=== PATIENT | female | born 1945 | race Caucasian/White ===

== ENCOUNTER 2017-09-19 12:28 | Inpatient (IN) | payer OTHER ==
[~2017-09-19] VITALS: Ht 167.6 cm; Wt 71.2 kg
--- NOTE | 2017-09-19 12:28 | NUR ---
Dr. Oglesby evaluating patient at bedside.
--- NOTE | 2017-09-19 12:28 | NUR ---
Patient was BIBA and taken to bed 10 via gurney per EMS.
[2017-09-19 12:31] VITALS: BP 104/46
[2017-09-19] MEDS ORDERED: NACL 0.9% 1,000 ML IV ONE ×2 (12:35→14:45)
--- NOTE | 2017-09-19 12:35 | NUR ---
PT BIBA FROM SNF FOR EVALUATION OF INCREASED GENERALIZED WEAKNESS AND LETHARGY AND DIMINISHED APPETITE.CLAY MIXER REPORTS EPISODE OF BLACK TARRY STOOL.REDNESS NOTED ON SACRAL AREAHX OF DEMENTIA, HTN, HYPERLIPIDEMIA,DM.PT IS NON VERBAL BUT ABLE TO FOLLOW COMMAND;SKIN IS PINK/WARM/DRY; LUNGS CLEAR BL; HR EVEN AND REGULAR; PAIN OF 0/10 UTILIZING FLACC AT THIS TIME;PATIENT POSITIONED FOR COMFORT; HOB ELEVATED; BEDRAILS UP X2; BED DOWN. ALL MONITORS IN PLACED;ER MD MADE AWARE OF PT STATUS.
[2017-09-19] MEDS ORDERED: VITA1TAB SL (12:56)
[2017-09-19] MEDS ORDERED: QUET50TA PO (12:56)
[2017-09-19] MEDS ORDERED: GLU500 PO (12:56)
[2017-09-19] MEDS ORDERED: ASPI81CT95 PO (12:56)
[2017-09-19] MEDS ORDERED: [UNRECOGNIZED DRUG - CODE] PO (12:56)
[2017-09-19] MEDS ORDERED: CALC-52 PO (12:56)
[2017-09-19] MEDS ORDERED: MIRT15TA PO (12:56)
[2017-09-19] MEDS ORDERED: DONE10TA91 PO (12:56)
[2017-09-19] MEDS ORDERED: TROS20TA PO (12:56)
[2017-09-19] MEDS ORDERED: LISI-420 PO (12:56)
--- NOTE | 2017-09-19 13:20 | NUR ---
Patient taken to CT via gissel bolivar.
--- NOTE | 2017-09-19 13:23 | NUR ---
Tawny moura in ED - 09/19/17 at [address] SCAN ACCOMPANIED BY TECH.
[2017-09-19 13:26] LABS: HEMATOCRIT 35.1 % (36-48); HEMOGLOBIN 11.6 g/dL (12.0-16.0); MEAN CORPUSCULAR HEMOGLOBIN 30 pg (27-31); MEAN CORPUSCULAR HGB CONC 33 g/dL (33-37); MEAN CORPUSCULAR VOLUME 91 fL (80-94); PLATELET COUNT (AUTO) 125 K/uL (140-450); RED BLOOD CELL COUNT(AUTO) 3.85 MIL/uL (4.20-5.40); RED CELL DISTRIBUTION WIDTH 14.1 % (11.6-13.7); WHITE BLOOD COUNT (AUTO) 8.8 K/uL (4.8-10.8)
[2017-09-19] MEDS ORDERED: NACL 0.9% 500 ML IV ONE ×3 (13:40→21:20)
[2017-09-19 13:46] LABS: LYMPHOCYTES % (MANUAL) 5 % (20-46); MONOCYTES % (MANUAL) 5 % (5-12)
--- NOTE | 2017-09-19 14:19 | NUR ---
Dr. Oglesby reevaluating patient at bedside.
[2017-09-19] MEDS ORDERED: PIPERACILLIN/TAZOBACTAM 3.375 GM in DEXTROSE 5% 50 ML IV ONE (14:30)
[2017-09-19 14:46] LABS: ANION GAP 19.4 (8-16); ASPARTATE AMINOTRANSFERASE 22 U/L (15-37); CARBON DIOXIDE 20.6 mmol/L (21-32); CHLORIDE 107 mmol/L (98-107); GLUCOSE 238 mg/dL (74-106); SODIUM SERUM 143 mmol/L (136-145); TOTAL BILIRUBIN 0.7 mg/dL (0.0-1.0)
[2017-09-19 14:49] LABS: APPEARANCE,URINE CLOUDY (CLEAR); BILIRUBIN,URINE 1+ (NEGATIVE); BLOOD, URINE 3+ (NEGATIVE); COLOR,URINE YELLOW (YELLOW); LEUKOCYTE ESTERASE ,URINE 3+ (NEGATIVE); NITRITE, URINE NEGATIVE (NEGATIVE); UGLUCOSE NEGATIVE (NEGATIVE)
[2017-09-19 14:49] LABS: CREATININE 4.3 mg/dL (0.6-1.3); UREA NITROGEN, BLOOD 132 mg/dL (7-18)
[2017-09-19] MEDS ORDERED: PIPERACILLIN/TAZOBACTAM 3.375 GM VIAL IV ONE (15:06)
[2017-09-19 15:10] LABS: RBC,URINE 11-20 (MOD) /HPF (0-5); WBC,URINE TOO MANY TO COUNT /HPF (0-5)
--- NOTE | 2017-09-19 15:35 | NUR ---
PER EMS PT IS FULL CODE.
--- NOTE | 2017-09-19 15:45 | NUR ---
RECEIVED PT FROM ER VIA SpeedDate[employer]NEY. PT ALERT AND ABLE TO VERBALIZE. TACHYCARDIAC WHEN RECEIVE. NO RESPIRATORY DISTRESS NOTED. PT ON NC AT 2 LTR/MIN. O2 SAT 94 %. SPONTANEOUS EYES OPENING, REACTIVE TO LIGHT. SKIN DRY AND WARM TO TOUCH. LUNGS SOUND CLEAR ON AUSCULTATION. PERIPHERAL LINE ON RIGHT HAND 22 G AND LEFT HAND 20 G. ON 0.9% NS BOLUS. ABDOMEN SOFT, ROUND AND NON-TENDER. HYPOACTIVE BOWEL SOUND. REYNOSO'S CATH IN PLACE. PITTING EDEMA PRESENT ON BLE. SAFETY MEASURES APPLIED. BED IN LOW POSITION, LOCKED. CALL LIGHT WITHIN REACH. WILL CONTINUE TO MONITOR.
--- NOTE | 2017-09-19 15:49 | NUR ---
Patient will be admitted to [facility]. Admited to ICU. Will go to room 5. Belongings list completed. Report to TONEY PERALTA.
[2017-09-19 16:00] VITALS: BP 110/71
--- NOTE | 2017-09-19 16:00 | NUR ---
MRSA NARES AND STOOL FOR OCCULT BLOOD SENT TO THE LAB.
[2017-09-19] MEDS ORDERED: ACETAMINOPHEN 325 MG TAB PO PRN (17:00)
[2017-09-19] MEDS ORDERED: DILTIAZEM 25 MG/5 ML VIAL IVP ONE (17:00)
[2017-09-19] MEDS ORDERED: HYDROcodone/APAP 7.5/325 MG 1 TAB PO PRN (17:00)
[2017-09-19] MEDS ORDERED: ONDANSETRON 4 MG/2 ML VIAL IVP PRN (17:00)
[2017-09-19] MEDS ORDERED: NACL 0.9% 1,000 ML IV SCH (17:00)
[2017-09-19] MEDS ORDERED: DIPHENOXYLATE /ATROPINE 2.5 MG TAB PO PRN (17:00)
--- NOTE | 2017-09-19 17:57 | NUR ---
CALLED DR. BARROW NOTIFIED THE BP 102/44. SAID OKAY TO GIVE DILTIAZEM.
[2017-09-19 18:00] VITALS: BP 96/37
[2017-09-19] MEDS ORDERED: MORPHINE SULFATE 2 MG/ML SYR IVP PRN (18:00)
--- NOTE | 2017-09-19 18:03 | NUR ---
PT RESTING IN BED. NO CHANGE IN LOC. WILL CONTINUE TO MONITOR.
--- NOTE | 2017-09-19 18:32 | NUR ---
PT BP DECREASING BP 83/45. CALLED DR. THOMPSON NOTIFIED PTS BP. NO NEW ORDER AT THIS TIME. WILL CONTINUE TO MONITOR.
[2017-09-19 18:39] LABS: FREE T4 (FREE THYROXINE) 1.11 ng/dL (0.76-1.46); MAGNESIUM 2.1 mg/dL (1.8-2.4); PHOSPHORUS 5.2 mg/dL (2.5-4.9); THYROID STIMULATING HORMONE 0.94 uIU/mL (0.34-3.74)
--- NOTE | 2017-09-19 18:40 | NUR ---
BOLUS OF NS 500ML STARTED TO RIGHT DORSAL HAND IV.
[2017-09-19] MEDS ORDERED: DEXTROSE 50% 50 ML SYR IVP PRN (19:15)
--- NOTE | 2017-09-19 19:25 | NUR ---
REPORT RECEIVED FROM MORNING NURSE, TONEY LARSON. PT IS AWAKE BUT CONFUSED. UNABLE TO FOLLOW COMMANDS AND MUMBLES NONSENSICAL WORDS. PERRL. S1 AND S2 HEARD WITHOUT ABNORMAL HEART SOUNDS. BILATERAL LUNGS SOUND CLEAR UPPER LOBES AND DIMINISHED LOWER LOBES. BREATHING EVEN AND UNLABORED. O2 2L/MIN VIA NC. BOWEL SOUNDS ACTIVE FROM ALL 4 QUADS. BILATERAL PEDAL PULSES PALPATED. REYNOSO CATHETER DRAINING CLOUDY LIGHT ALISON COLOR URINE VIA GRAVITY. PERIPHERAL IV STIES TO LEFT HAND 20G AND RIGHT HAND 22G. PATENT AND ASYMPTOMATIC. CONTINUING TO MONITOR UNDER CONTINUOS ELECTRIC GAS APPLIANCES DEMONSTRATOR. NO ACUTE DISTRESS NOTED AT THIS TIME. NO S/SX OF PAIN. CALL LIGHT IN REACH. BED KEPT TO THE LOWEST POSITION. HOB ELEVATED 30 DEGREES. WILL CONTINUE TO MONITOR.
--- NOTE | 2017-09-19 19:25 | NUR ---
REPORT GIVEN TO NOC RN FOR CONTINUITY OF CARE. PATIENT IN STABLE CONDITION.
--- NOTE | 2017-09-19 19:35 | NUR ---
DR. FLOYD AT BED SIDE. WILL FOLLOW UP WITH ANY ORDERS.
[2017-09-19 20:00] VITALS: BP 100/50
[2017-09-19] MEDS: BLOOD GLUCOSE MONITORING 1 DEV DEV FS SCH (20:08)
[2017-09-19] MEDS: INSULIN LISPRO SLIDING SCALE 100 UNITS/ML VIAL SUBQ PRN (20:10)
[2017-09-19] MEDS: DONEPEZIL 10 MG TAB PO SCH (21:00)
[2017-09-19] MEDS: DOCUSATE SODIUM 100 MG GELCAP PO SCH (21:00)
[2017-09-19] MEDS: QUEtiapine FUMARATE 25 MG TAB PO SCH (21:00)
[2017-09-19] MEDS: MIRTAZAPINE 15 MG TAB PO SCH (21:00)
--- NOTE | 2017-09-19 21:02 | NUR ---
DR. THOMPSON MADE AWARE OF PT'S LOW BP AND NOT BEING ABLE TO SWALLOW ANYTHING AND UNABLE TO TO ADMINISTER PO MEDS. DR. THOMPSON WILL SEE THE PT.
--- NOTE | 2017-09-19 21:20 | NUR ---
DR. THOMPSON AT BED SIDE. WILL FOLLOW UP WITH ANY ORDERS.
--- NOTE | 2017-09-19 21:30 | NUR ---
DR. CARRANZA CALLED GHAZALA, SON (POA) ABOUT PT'S CONDITION AND POA WANTS MODIFIED RESUSCITATION. NO CENTRAL LINE, NO VASOPRESSORS, NO INTUBATION, OK FOR BIAPAP, OK FOR IV FLUIDS AND ANTIBIOTICS, OK FOR CPR.
[2017-09-19] MEDS: Z-GUARD PASTE TP SCH (21:43)
[2017-09-19 22:00] VITALS: BP 99/59
--- NOTE | 2017-09-19 22:32 | NUR ---
PT IS BEING TRANSFERRED TO CT FOR CT OF HEAD WITHOUT CONTRAST.
--- NOTE | 2017-09-19 22:51 | NUR ---
PT BACK FROM CT. BP=99/61. P=109. R=20. 99% ON 2L/MIN O2 VIA NC. WILL CONTINUE TO MONITOR.
[2017-09-19] MEDS ORDERED: HEPARIN PER PHARMACY MC PRN (23:25)
[2017-09-19] MEDS ORDERED: hePARIN / DEXT 5% PREMIX 250 ML IV SCH ×2 (23:25→23:40)
[2017-09-20] VITALS (10 sets, daily range): BP systolic 108–143; BP diastolic 42–81
--- NOTE | 2017-09-20 | NUR ---
NEW ORDER RECEIVED FROM DR. THOMPSON TO START HEPARIN DRIP ORDERED. WILL CARRY OUT.
--- NOTE | 2017-09-20 00:09 | NUR ---
PTT ORDERED TO BE SCHEDULED FOR 09/20/2017 @0600 PER HEPARIN PROTOCOL.
[2017-09-20] MEDS: DEXT 5% / NACL 0.9% 500 ML IV SCH ×3 (00:46→10:15)
--- NOTE | 2017-09-20 02:14 | NUR ---
PT IS SLEEPING AT THIS TIME. NO S/SX OF PAIN. CONTINUING WITH HEPARIN DRIP. NO S/SX OF BLEEDING NOTED AT THIS TIME. WILL CONTINUE TO MONITOR.
--- NOTE | 2017-09-20 05:00 | NUR ---
AM CARE AND REYNOSO CARE PROVIDED. TOLERATED WELL. KEPT SKIN CLEAN AND DRY.
--- NOTE | 2017-09-20 05:10 | NUR ---
DR. PADILLA AT BED SIDE. WILL FOLLOW UP WITH ANY ORDERS.
[2017-09-20] MEDS ORDERED: DILTIAZEM 25 MG/5 ML VIAL IVP ONE (05:40)
--- NOTE | 2017-09-20 05:45 | NUR ---
NEW ORDER RECEIVED. DITIAZEM 10MG IVP. NOTED AND CARRIED OUT.
[2017-09-20] MEDS: BLOOD GLUCOSE MONITORING 1 DEV DEV FS SCH ×4 (06:31→21:03)
[2017-09-20] MEDS: INSULIN LISPRO SLIDING SCALE 100 UNITS/ML VIAL SUBQ PRN ×4 (06:32→20:59)
[2017-09-20 06:50] LABS: HEMATOCRIT 32.3 % (36-48); HEMOGLOBIN 10.9 g/dL (12.0-16.0); MEAN CORPUSCULAR HEMOGLOBIN 31 pg (27-31); MEAN CORPUSCULAR HGB CONC 34 g/dL (33-37); MEAN CORPUSCULAR VOLUME 91 fL (80-94); PLATELET COUNT (AUTO) 116 K/uL (140-450); RED BLOOD CELL COUNT(AUTO) 3.57 MIL/uL (4.20-5.40); RED CELL DISTRIBUTION WIDTH 14.5 % (11.6-13.7); WHITE BLOOD COUNT (AUTO) 8.6 K/uL (4.8-10.8)
[2017-09-20 07:09] LABS: MAGNESIUM 1.9 mg/dL (1.8-2.4); PHOSPHORUS 4.2 mg/dL (2.5-4.9)
--- NOTE | 2017-09-20 07:09 | NUR ---
REPORT GIVEN TO MORNING NURSEMARSHA FOR CONTINUITY OF CARE. ALL SAFETY PRECAUTIONS ARE IN PLACE.
--- NOTE | 2017-09-20 07:10 | NUR ---
REPORT RECEIVED FROM NIGHT RN FOR CONTINUITY OF CARE.
[2017-09-20 07:11] LABS: CHOL/HDL RATIO 9.6 (1-4.5)
[2017-09-20 07:12] LABS: ANION GAP 17.3 (8-16); CARBON DIOXIDE 19.5 mmol/L (21-32); CHLORIDE 114 mmol/L (98-107); GLUCOSE 193 mg/dL (74-106); POTASSIUM 3.8 mmol/L (3.5-5.1); SODIUM SERUM 147 mmol/L (136-145)
[2017-09-20 07:14] LABS: UREA NITROGEN, BLOOD 121 mg/dL (7-18)
[2017-09-20 07:15] LABS: CREATININE 3.9 mg/dL (0.6-1.3)
--- NOTE | 2017-09-20 07:20 | NUR ---
RESIDENT PHYSICIAN, DR. PADILLA MADE AWARE OF PATIENT'S CREATININE 3.9 AND BUN 121 LEVELS. NO ORDERS MADE AT THIS TIME.
--- NOTE | 2017-09-20 07:55 | NUR ---
DR WALSH AND GROUP ROUNDING ON THE PATIENT. WILL FOLLOW UP WITH ORDERS.
--- NOTE | 2017-09-20 08:05 | NUR ---
RESIDENT PHYSICIAN DR PADILLA MADE AWARE OF PTT LEVEL 84.1. WILL DECREASE HEPARIN DRIP
[2017-09-20 08:29] LABS: LYMPHOCYTES % (MANUAL) 3 % (20-46); MONOCYTES % (MANUAL) 5 % (5-12)
[2017-09-20] MEDS: TAMSULOSIN 0.4 MG CAP PO SCH (08:30)
[2017-09-20] MEDS: DOCUSATE SODIUM 100 MG GELCAP PO SCH ×2 (09:00→21:13)
[2017-09-20] MEDS: CALCIUM CARB/VIT-D 500 MG/200 IU 1 TAB PO SCH (09:00)
[2017-09-20] MEDS: Z-GUARD PASTE TP SCH ×2 (09:00→21:14)
[2017-09-20] MEDS: DONEPEZIL 10 MG TAB PO SCH ×2 (09:00→21:12)
[2017-09-20] MEDS: LACTOBACILLUS RHAMNOSUS GG 1 EACH CAP PO SCH (09:00)
[2017-09-20] MEDS ORDERED: LISINOPRIL 20 MG TAB PO SCH (09:00)
--- NOTE | 2017-09-20 09:00 | NUR ---
MORNING MEDS NOT GIVEN, PATIENT IS NOT FULLY AWAKE AT THIS TIME. RESIDENT PHYSICIAN DR. PADILLA MADE AWARE.
--- NOTE | 2017-09-20 09:02 | NUR ---
PATIENT HAS BEEN SCREENED AND CATEGORIZED HIGH NUTRITION RISK. PATIENT WILL BE SEEN WITHIN 1-2 DAYS OF ADMISSION. 09/20/17-09/21/[address]
--- NOTE | 2017-09-20 10:22 | NUR ---
CM NOTE PER KASSIDY Mckeon OF [facility] PH# [phone], IS FULLY DELEGATED AND TO SEND REVIEWS ONLY TO FAX# [phone] [facility] PH# [phone] EXT [phone]. INITIAL REVIEW FAXED TO FAX# [phone] [facility] PH# [phone] EXT [phone].
[2017-09-20] MEDS: DEXT 5% /NACL 0.9% 1,000 ML IV SCH ×2 (13:42→21:34)
--- NOTE | 2017-09-20 15:04 | NUR ---
NOTIFIED DR. CASON ON CRITICAL FINDINGS
--- NOTE | 2017-09-20 16:00 | NUR ---
FAMILY AT BEDSIDE, UPDATED OF PATIENT'S CONDITION.
--- NOTE | 2017-09-20 16:45 | NUR ---
DR. CASON IN, SEEN AND EXAMINED PATIENT. WILL FOLLOW WITH ORDERS. ABLE TO DISCUSS HIS RECOMMENDATIONS AND PLANS TO PATIENT'S FAMILY.
--- NOTE | 2017-09-20 17:00 | NUR ---
TRANSFERRED PATIENT TO ROOM 107 A PER HOSPITAL BED IN STABLE CONDITION. BEDSIDE REPORT GIVEN TO RECEIVING RN.
--- NOTE | 2017-09-20 17:10 | NUR ---
RECEIVED PT FROM ICU VIA Complex [employer]. PT AWAKE ALERT, ORIENTED X1. VITAL SIGNS TAKEN. VITALS WITHIN NORMAL LIMITS. NO RESPIRATORY DISTRESS NOTED. PT ON NC AT 2 L. O2 SAT 96 %. LUNG SOUND DIMINISHED IN THE LOWER LOBES. IV NOTED ON THE ON RIGHT HAND 22 G AND LEFT HAND 20 G. ABDOMEN SOFT, ROUND AND NON-TENDER. HYPOACTIVE BOWEL SOUND. REYNOSO'S CATH IN PLACE, HOWEVER, PAD WAS WET WITH URINE, RE-INFLATED BALLOON WITH 10CC. PITTING EDEMA PRESENT ON BLE. SCDS WAS PUT ON. PT IS ON TELE MONITORING. SAFETY MEASURES APPLIED. BED IN LOW POSITION, LOCKED. CALL LIGHT WITHIN REACH. WILL CONTINUE TO MONITOR.
--- NOTE | 2017-09-20 18:30 | NUR ---
PIC TAKEN OVER THE SACRAL.
--- NOTE | 2017-09-20 18:56 | NUR ---
ASSISTANT SURVEYOR NOTE [id number] Pt seen for swallow eval following clearance by TONEY Travis. Recommend: -Puree and nectar thick liquids for all PO, meds crushed w/applesauce -Upright at 90 during and 15 s/p PO -Pt AWAKE and ALERT for all intake -No straws -Small bites/sips -Slow rate w/extra time between bites as needed -Alternate bites/sips ASSISTANT SURVEYOR to follow 2x/wk x1wk for diet tolerance and adjustment. PVE w/TONEY Travis re: recommendations and safe swallow precautions. Swallow precautions placed at [facility] G8996: CJ G8997: CI
--- NOTE | 2017-09-20 19:30 | NUR ---
ENDORSED PT TO SCOURING TRAIN OPERATOR RN. PT IN STABLE CONDITION.
--- NOTE | 2017-09-20 19:32 | NUR ---
RECEIVED PT FROM CLINT ZIEGLER PT AAOX1 CONFUSED ON TELEMETRY SR, IV ON LEFT HAND INFUSING WELL, AND HL ON RT HAND PATENT, REYNOSO CATH DRAINING CLOUDY URINE REPOSITIONED INITIAL ASSESSMENT DONE
--- NOTE | 2017-09-20 19:33 | NUR ---
RECEIVED PT FROM CLINT ZIEGLER PT AAOX1 CONFUSED ON TELEMETRY SR, HL ON RT HAND PATENT AND IV ON LEFT HAND INFUSING WELL PT REPOSITIONED SACRAL REDNESS, REYNOSO CATH DRAINING CLOUDY URINE NOT FEVER AT THIS TIME
[2017-09-20] MEDS: MIRTAZAPINE 15 MG TAB PO SCH (21:13)
[2017-09-20] MEDS: QUEtiapine FUMARATE 25 MG TAB PO SCH (21:14)
--- NOTE | 2017-09-20 21:30 | NUR ---
BLOOD SUGAR TEST 173 COVERAGE WITH 2 UNITS SUBQ ON RT ARM HUMALOG ORDER
[2017-09-21] VITALS: BP 98/43
--- NOTE | 2017-09-21 | NUR ---
PT SLEEPING WELL NOT DISTRESS NOTED REPOSITIONED Q2H IV INFUSING WELL ON LEFT HAND ON TELEMETRY AFIB , LINEN CHANGED
--- NOTE | 2017-09-21 02:00 | NUR ---
PT ON DEEP SLEEP REPOSITIONED Q2H ,IV ON LEFT HAND INUSING WELL NOT DISTRESS NOTEDON TELEMETRY ATRIAL FIB
[2017-09-21 03:54] VITALS: BP 104/58
--- NOTE | 2017-09-21 04:49 | NUR ---
SPONGE BATH GIVEN , LINEN CHANGED NOT AGITATION BUT PT CONFUSED
[2017-09-21] MEDS: INSULIN LISPRO SLIDING SCALE 100 UNITS/ML VIAL SUBQ PRN ×4 (06:06→21:33)
[2017-09-21] MEDS: BLOOD GLUCOSE MONITORING 1 DEV DEV FS SCH ×4 (06:13→21:33)
[2017-09-21] MEDS: DEXT 5% /NACL 0.9% 1,000 ML IV SCH ×2 (06:13→17:09)
--- NOTE | 2017-09-21 06:26 | NUR ---
A BLOOD SUGAR 196 COVERAGE WITH 2 UNITS SUBQ ON LEFT ARM PROTOCOL
--- NOTE | 2017-09-21 07:20 | NUR ---
RECEIVED PT FROM STUDENT LIFE DEAN RN. PT AWAKE ALERT, ORIENTED X1. NO RESPIRATORY DISTRESS NOTED. PT ON NC AT 2 L. IV NOTED ON THE ON RIGHT HAND 22 G AND LEFT HAND 20 G. IVS PATENT AND INTACT, INFUSING WELL. REYNOSO'S CATH IN PLACE. SCDS IN PLACE. PT IS ON TELE MONITORING. SAFETY MEASURES APPLIED. BED IN LOW POSITION, CALL LIGHT WITHIN REACH. WILL CONTINUE TO MONITOR.
[2017-09-21 07:31] LABS: BASOPHILS # (AUTO) 0.1 K/uL (0.00-0.22); BASOPHILS % (AUTO) 0.6 % (0.0-2.0); EOSINOPHILS # (AUTO) 0.1 K/uL (0-0.4); EOSINOPHILS % (AUTO) 0.6 % (0.0-4.0); HEMATOCRIT 29.1 % (36-48); HEMOGLOBIN 9.5 g/dL (12.0-16.0); LYMPHOCYTES # (AUTO) 0.4 K/uL (2.5-16.5); LYMPHOCYTES % (AUTO) 4.6 % (20.5-51.1); MEAN CORPUSCULAR HEMOGLOBIN 30 pg (27-31); MEAN CORPUSCULAR HGB CONC 33 g/dL (33-37); MEAN CORPUSCULAR VOLUME 90 fL (80-94); MONOCYTES # (AUTO) 0.6 K/uL (0.8-1.0); MONOCYTES % (AUTO) 6.5 % (1.7-9.3); NEUTROPHILS # (AUTO) 7.6 K/uL (1.8-7.7); NEUTROPHILS % (AUTO) 87.7 % (42.2-75.2); PLATELET COUNT (AUTO) 111 K/uL (140-450); RED BLOOD CELL COUNT(AUTO) 3.23 MIL/uL (4.20-5.40); RED CELL DISTRIBUTION WIDTH 14.9 % (11.6-13.7); WHITE BLOOD COUNT (AUTO) 8.8 K/uL (4.8-10.8)
[2017-09-21 07:58] VITALS: BP 134/71
[2017-09-21] MEDS: Z-GUARD PASTE TP SCH ×2 (09:00→21:58)
--- NOTE | 2017-09-21 09:01 | NUR ---
CM NOTE RECEIVED ORDER FOR HOSPICE EVAL. PER DR. PADILLA, SHE HAS SPOKEN WITH PATIENT'S FAMILY AND THEY ARE AWARE AND THEY HAVE NO HOSPICE PREFERENCE. [facility] WITH [facility] [phone] AND FAXED CLINICAL INFO TO [phone].
[2017-09-21 09:12] LABS: ANION GAP 15.1 (8-16); CARBON DIOXIDE 19.3 mmol/L (21-32); CHLORIDE 121 mmol/L (98-107); GLUCOSE 221 mg/dL (74-106); POTASSIUM 3.4 mmol/L (3.5-5.1); SODIUM SERUM 152 mmol/L (136-145)
[2017-09-21] MEDS: CALCIUM CARB/VIT-D 500 MG/200 IU 1 TAB PO SCH (09:17)
[2017-09-21] MEDS: LACTOBACILLUS RHAMNOSUS GG 1 EACH CAP PO SCH (09:17)
[2017-09-21 09:18] LABS: UREA NITROGEN, BLOOD 104 mg/dL (7-18)
[2017-09-21] MEDS: DOCUSATE SODIUM 100 MG GELCAP PO SCH ×2 (09:18→21:56)
[2017-09-21] MEDS: DONEPEZIL 10 MG TAB PO SCH ×2 (09:18→21:56)
[2017-09-21] MEDS: TAMSULOSIN 0.4 MG CAP PO SCH (09:18)
[2017-09-21 09:19] LABS: CREATININE 3.4 mg/dL (0.6-1.3)
[2017-09-21 09:20] LABS: PHOSPHORUS 3.4 mg/dL (2.5-4.9)
--- NOTE | 2017-09-21 10:31 | NUR ---
CM NOTE CONCURRENT REVIEW FAXED TO FAX# [phone] [facility] PH# [phone] EXT [phone].
--- NOTE | 2017-09-21 11:20 | NUR ---
NOTIFIED DR PADILLA ABOUT POSITIVE URINE CULTURE RESULT FOR MICROORGANISMS. REQUESTED MD TO HAVE A WOUND CONSULT FOR THE PT.
[2017-09-21 12:00] VITALS: BP 154/56
--- NOTE | 2017-09-21 13:51 | NUR ---
09/21/17 RD INITIAL ASSESSMENT COMPLETED PLEASE REFER TO NUTRITION ASSESSMENT UNDER CARE ACTIVITY FOR ESTIMATED NUTRITIONAL NEEDS. 1. CONTINUE PUREE DIET WITH HONEY THICKENED LIQUIDS TOLERATED PER MD 2. ENCOURAGE INCREASED PO INTAKES -PATIENT WITH 50% PO INTAKE RIGHT NOW. 3. IF/WHEN PT PO INTAKES IMPROVE >75%, CONSIDER ADDING CCHO 60 GM TO CURRENT DIET ORDER 4. RD TO FOLLOW-UP 3-5 DAYS, HIGH RISK FIFI WEBB RD
--- NOTE | 2017-09-21 14:22 | NUR ---
Teletray Operator contacted Lorrie in admissions at [facility] Patient's current SNF/Hospice to discuss, confirm and gather patients information. This comic book writer discussed patient's son's unavailability to be reach to discuss Patient's follow up, and next level of care after discharge. Lorrie confirmed with bilingual social worker contact numbers for patient's family, provided with patient's daughter contact information Jeanine Josette . Lorrie stated that the son that will need to be notify and get consents for Patients treatment Choco Stephen at . farrowing worker asked if patient can be back to SNF she stated yes under hospice and that they are also pending on patient's son to give consents. This comic book writer ended call and will follow up as needed.
--- NOTE | 2017-09-21 14:30 | NUR ---
CM NOTE NELLI OF [facility] CAME TO EVALUATE PATIENT. PER NELLI, [facility] CAN ACCEPT PATIENT BUT THEY ARE STILL TRYING TO GET A HOLD OF PATIENT'S FAMILY TO SIGN THE NECESSARY DOCUMENTS. DR. PADILLA AND CHARGE NURSE ANA M FLEMING.
--- NOTE | 2017-09-21 15:08 | NUR ---
CM NOTE FAXED URINE CULTURE RESULT TO [facility] [phone]. SPOKE WITH STEWART OF [facility] PH# [phone] TO INFORM THEM URINE CULTURE RESULT.
--- NOTE | 2017-09-21 15:32 | NUR ---
CALLED [facility]. THEY DO NOT HAVE HOSPICE SUPPLY RIGHT NOW. NOTIFIED DR PADILLA. DR PADILLA WILL CHANGE DISCHARGE ORDER FOR TOMORROW MORNING.
[2017-09-21 16:00] VITALS: BP 150/96
--- NOTE | 2017-09-21 16:59 | NUR ---
I GOT A CALL FROM [facility] STATED [facility] WON[facility]T HAVE ISOLATION BED , ANNIE WILL LOOK FOR ANOTHER PLACE THAT HAVE ISOLATION BED AND WILL CALL BACK TOMORROW.
--- NOTE | 2017-09-21 17:49 | NUR ---
* ST D/C NOTE * Pt seen at bedside after receiving clearance from charge nurse. Pt asleep upon entering room. Upon awakening, pt alert but moderately to minimally cooperative, reporting no c/o pain at this time. Pt initially refusing therapeutic feeding trials at this time. Pt education provided regarding benefits of participating in skilled HOTEL SERVER services, w/pt eventually allowing PO feeding trials. Pt tolerating 2/2 alternating PO trials of puree apple sauce 3-4 CCs at a time via a spoon as well as 3/3 alternating PO trials of nectar-thick apple juice 3-4 CCs at a time via a spoon, all w/o s/s of aspiration or choking. Pt however refusing further therapeutic feeding trials at this time, once again despite maximal education and cueing provided by clinician. Pt and caregiver/nsg education completed regarding results of skilled HOTEL SERVER tx, and recommendations upon pt's D/C from skilled HOTEL SERVER services, w/pt indifferent but charge nurse verbalizing understanding and agreement w/clinician's recommendations. Charge nurse also reporting pt pending transfer for hospice care, w/clinician acknowledging charge nurse's report. No further ST follow up recommended at this time. G8997 CJ G8998 CJ NOMS Level 3 Time In/Out 17:00 - 17:30
--- NOTE | 2017-09-21 18:00 | NUR ---
FEED PT DINNER. PT TOLERATED WELL. PT ATE ABOUT 50%.
--- NOTE | 2017-09-21 19:30 | NUR ---
ENDORSED PT TO LASTING FLOORWORKER RN. PT IN STABLE CONDITION.
--- NOTE | 2017-09-21 19:32 | NUR ---
RECEIVED PT FROM CLINT RN PT AOX1 CONFUSED ON TELEMETRY RARE PACEMAKER AND ATRIAL FLUTTER, IV ON RT HAND INFUSING WELL NOT AGITATION REPOSITIONE REYNOSO CATH DRAINING WELL YELLOW URINE NOT DISTRESS NOTED INITIAL ASSESSMENT DONE
[2017-09-21 20:00] VITALS: BP 142/78
--- NOTE | 2017-09-21 21:30 | NUR ---
PT HAS A BIG BM SPONGE BATH GIVEN AND LINEN CHANGED AND TAKEN WELL HER MEDICATION WITH APPLE SAUCE.
[2017-09-21] MEDS: MIRTAZAPINE 15 MG TAB PO SCH (21:57)
[2017-09-21] MEDS: QUEtiapine FUMARATE 25 MG TAB PO SCH (21:58)
[2017-09-22] VITALS: BP 154/57
--- NOTE | 2017-09-22 | NUR ---
PT SLEEPING NOT DISTRESS NOTED REPOSITIONED Q2 ON TELEMETRY AFIB BBB
[2017-09-22 04:08] VITALS: BP 137/81
--- NOTE | 2017-09-22 04:12 | NUR ---
PT HAS BEEN MONITORING CLOSE NOT SOB NOTED NOT DISTRESS NOTED, REPOSITIONED Q2H, IV INFUSING WELL ON RT HAND, ON TELEMETRY A FIB, BBB PACED
[2017-09-22] MEDS: BLOOD GLUCOSE MONITORING 1 DEV DEV FS SCH ×4 (06:04→20:53)
[2017-09-22] MEDS: INSULIN LISPRO SLIDING SCALE 100 UNITS/ML VIAL SUBQ PRN ×4 (06:07→21:02)
--- NOTE | 2017-09-22 06:15 | NUR ---
BLOOD SUGAR TEST 171 COVERAGE WITH2 UNITS SUBQ HUMALOG, ON RT ARM. REPOSITIONED Q2H, NOT DISTRESS NOTED PT SLEEPING ON TELEMETRY AFIB BBB
[2017-09-22 07:18] LABS: BASOPHILS # (AUTO) 0.1 K/uL (0.00-0.22); BASOPHILS % (AUTO) 0.5 % (0.0-2.0); EOSINOPHILS # (AUTO) 0.1 K/uL (0-0.4); EOSINOPHILS % (AUTO) 0.6 % (0.0-4.0); HEMATOCRIT 32.6 % (36-48); HEMOGLOBIN 10.9 g/dL (12.0-16.0); LYMPHOCYTES # (AUTO) 0.5 K/uL (2.5-16.5); LYMPHOCYTES % (AUTO) 4.5 % (20.5-51.1); MEAN CORPUSCULAR HEMOGLOBIN 30 pg (27-31); MEAN CORPUSCULAR HGB CONC 33 g/dL (33-37); MEAN CORPUSCULAR VOLUME 90 fL (80-94); MONOCYTES # (AUTO) 0.5 K/uL (0.8-1.0); MONOCYTES % (AUTO) 4.7 % (1.7-9.3); NEUTROPHILS # (AUTO) 9.1 K/uL (1.8-7.7); NEUTROPHILS % (AUTO) 89.7 % (42.2-75.2); PLATELET COUNT (AUTO) 110 K/uL (140-450); RED BLOOD CELL COUNT(AUTO) 3.62 MIL/uL (4.20-5.40); RED CELL DISTRIBUTION WIDTH 14.8 % (11.6-13.7)
--- NOTE | 2017-09-22 07:22 | NUR ---
RECEIVED REPORT FROM PLATE GLASS POLISHER RN. PATIENT IS AWAKE, ALERT, ORIENTED X1. DR RAINEY AT THE BEDSIDE ASSESSING PATIENT. RESPIRATORY EFFORT IS EVEN AND UNLABORED. NO SIGNS AND SYMPTOMS OF ACUTE DISTRESS NOTED AT THIS TIME. PATIENT HAS IV TO LEFT WRIST 20G, AND TO RIGHT HAND 22G. SITES ARE CLEAN, DRY, PATENT AND INTACT. PATIENT DENIES ANY PAIN AT THIS TIME. BED IN LOWEST POSITION, SIDE RAILS UP X2, FALL PRECAUTION IN PLACE, SCD'S ON, CALL LIGHT PLACED WITHIN REACH. WILL CONTINUE TO MONITOR.
[2017-09-22 07:24] LABS: ANION GAP 15.8 (8-16); CARBON DIOXIDE 20.6 mmol/L (21-32); CHLORIDE 123 mmol/L (98-107); CREATININE 2.9 mg/dL (0.6-1.3); GLUCOSE 187 mg/dL (74-106); POTASSIUM 3.4 mmol/L (3.5-5.1); SODIUM SERUM 156 mmol/L (136-145)
[2017-09-22 07:31] LABS: MAGNESIUM 1.8 mg/dL (1.8-2.4); PHOSPHORUS 2.5 mg/dL (2.5-4.9)
[2017-09-22 07:34] LABS: UREA NITROGEN, BLOOD 87 mg/dL (7-18)
--- NOTE | 2017-09-22 07:49 | NUR ---
MADE DR RAINEY AWARE THAT PATIENTS BUN IS 87, CREATININE 2.9, SODIUM 156, AND POTASSIUM IS 3.4. WILL CONTINUE TO MONITOR.
[2017-09-22 08:00] VITALS: BP 144/62
[2017-09-22] MEDS: DONEPEZIL 10 MG TAB PO SCH ×2 (09:05→20:40)
[2017-09-22] MEDS: CALCIUM CARB/VIT-D 500 MG/200 IU 1 TAB PO SCH (09:05)
[2017-09-22] MEDS: LACTOBACILLUS RHAMNOSUS GG 1 EACH CAP PO SCH (09:05)
[2017-09-22] MEDS: DOCUSATE SODIUM 100 MG GELCAP PO SCH ×2 (09:05→20:39)
[2017-09-22] MEDS: TAMSULOSIN 0.4 MG CAP PO SCH (09:05)
[2017-09-22] MEDS: Z-GUARD PASTE TP SCH ×2 (09:10→21:02)
[2017-09-22 09:12] LABS: WHITE BLOOD COUNT (AUTO) 10.3 K/uL (4.8-10.8)
--- NOTE | 2017-09-22 10:55 | NUR ---
WAS UNABLE TO PUT Z-GUARD ON PATIENT DUE TO HER REFUSAL OF LETTING US TURN HER AND CHECK HER BACKSIDE. WILL CONTINUE TO MONITOR.
[2017-09-22 12:00] VITALS: BP 146/65
--- NOTE | 2017-09-22 12:40 | NUR ---
PATIENT ALLOWED US TO TURN HER AND APPLY Z-GUARD ON HER BOTTOM. PATIENT HAD A BIG BOWEL MOVEMENT. STOOL WAS SOFT, AND DARK BROWN/BLACK.
--- NOTE | 2017-09-22 12:49 | NUR ---
PATIENTS BLOOD SUGAR WAS 216, COVERED WITH 4 UNITS OF HUMALOG. NO SIGNS AND SYMPTOMS OF DISTRESS NOTED AT THIS TIME. WILL CONTINUE TO MONITOR.
[2017-09-22 16:00] VITALS: BP 140/56
--- NOTE | 2017-09-22 19:31 | NUR ---
ENDORSED PATIENT TO GUARD IMMIGRATION NURSE FOR CONTINUITY OF CARE. PATIENT IN STABLE CONDITION.
--- NOTE | 2017-09-22 19:35 | NUR ---
RECEIVED REPORT FROM AM NURSE. PATIENT IS AWAKE, ALERT, ORIENTED X1. NO SIGNS OF ACUTE DISTRESS NOTED. RESPIRATIONS EVEN AND UNLABORED. PATIENT HAS IV TO LEFT WRIST 20G, INTACT, PATENT AND ASYMPTOMATIC. PATIENT DENIES ANY PAIN AT THIS TIME. BED IN LOW POSITION, BILATERAL HALF SIDE RAILS UP, FALL PRECAUTION IN PLACE, CALL LIGHT WITHIN REACH. WILL CONTINUE TO MONITOR.
[2017-09-22 20:00] VITALS: BP 150/85
[2017-09-22] MEDS: QUEtiapine FUMARATE 25 MG TAB PO SCH (20:39)
[2017-09-22] MEDS: MIRTAZAPINE 15 MG TAB PO SCH (20:39)
[2017-09-23] VITALS: BP 142/61
--- NOTE | 2017-09-23 00:53 | NUR ---
PT IS SLEEPING, AROUSABLE TO VOICE. NO SIGNS OF ACUTE DISTRESS, RESPIRATIONS EVEN AND UNLABORED. BED IN LOW POSITION, BILATERAL HALF SIDE RAILS UP, CALL LIGHT WITHIN REACH, WILL CONTINUE TO MONITOR.
[2017-09-23 04:00] VITALS: BP 132/84
[2017-09-23] MEDS: BLOOD GLUCOSE MONITORING 1 DEV DEV FS SCH ×4 (06:33→20:48)
--- NOTE | 2017-09-23 07:11 | NUR ---
ENDORSED PT TO AM NURSE FOR CONTINUITY OF CARE. PT IS IN STABLE CONDITION.
--- NOTE | 2017-09-23 07:12 | NUR ---
RECEIVED REPORT FROM CALENDER WORKER HELPER RN. PATIENT IS AWAKE, ALERT, ORIENTED X1. RESPIRATORY EFFORT IS EVEN AND UNLABORED. NO SIGNS AND SYMPTOMS OF ACUTE DISTRESS NOTED AT THIS TIME. PATIENT HAS IV TO RIGHT HAND 22G INFUSING D5NS AT 20 ML/HR. SITES ARE CLEAN, DRY, PATENT AND INTACT. PATIENT DENIES ANY PAIN AT THIS TIME. BED IN LOWEST POSITION, SIDE RAILS UP X2, FALL PRECAUTION IN PLACE, SCD'S ON, CALL LIGHT PLACED WITHIN REACH. PATIENT NEEDS REINFORCEMENT. WILL CONTINUE TO MONITOR.
--- NOTE | 2017-09-23 07:50 | NUR ---
PATIENT REFUSED TO LET ME GET HER VITAL SIGNS. WOULDN'T LET ME PUT THE CUFF ON HER ARM, STATING THAT THEY ALREADY DID IT, AND THAT SHE DOESN'T WANT HER ARM TOUCHED. WILL CONTINUE TO MONITOR.
[2017-09-23 07:51] LABS: BASOPHILS # (AUTO) 0.1 K/uL (0.00-0.22); BASOPHILS % (AUTO) 1.1 % (0.0-2.0); EOSINOPHILS # (AUTO) 0.1 K/uL (0-0.4); EOSINOPHILS % (AUTO) 1.2 % (0.0-4.0); HEMATOCRIT 32.5 % (36-48); HEMOGLOBIN 10.7 g/dL (12.0-16.0); LYMPHOCYTES # (AUTO) 0.6 K/uL (2.5-16.5); LYMPHOCYTES % (AUTO) 6.7 % (20.5-51.1); MEAN CORPUSCULAR HEMOGLOBIN 30 pg (27-31); MEAN CORPUSCULAR HGB CONC 33 g/dL (33-37); MEAN CORPUSCULAR VOLUME 90 fL (80-94); MONOCYTES # (AUTO) 0.9 K/uL (0.8-1.0); MONOCYTES % (AUTO) 9.5 % (1.7-9.3); NEUTROPHILS # (AUTO) 7.8 K/uL (1.8-7.7); NEUTROPHILS % (AUTO) 81.5 % (42.2-75.2); PLATELET COUNT (AUTO) 112 K/uL (140-450); RED BLOOD CELL COUNT(AUTO) 3.61 MIL/uL (4.20-5.40); RED CELL DISTRIBUTION WIDTH 14.8 % (11.6-13.7)
[2017-09-23 08:04] LABS: ANION GAP 13.4 (8-16); CHLORIDE 125 mmol/L (98-107); CREATININE 2.3 mg/dL (0.6-1.3); GLUCOSE 177 mg/dL (74-106); POTASSIUM 3.4 mmol/L (3.5-5.1); SODIUM SERUM 158 mmol/L (136-145)
[2017-09-23 08:07] LABS: UREA NITROGEN, BLOOD 71 mg/dL (7-18)
[2017-09-23 08:12] LABS: MAGNESIUM 1.5 mg/dL (1.8-2.4); PHOSPHORUS 2.1 mg/dL (2.5-4.9)
[2017-09-23] MEDS: DONEPEZIL 10 MG TAB PO SCH ×2 (08:17→20:49)
[2017-09-23] MEDS: LACTOBACILLUS RHAMNOSUS GG 1 EACH CAP PO SCH (08:17)
[2017-09-23] MEDS: DOCUSATE SODIUM 100 MG GELCAP PO SCH ×2 (08:17→20:49)
[2017-09-23] MEDS: TAMSULOSIN 0.4 MG CAP PO SCH (08:17)
[2017-09-23] MEDS: CALCIUM CARB/VIT-D 500 MG/200 IU 1 TAB PO SCH (08:17)
[2017-09-23] MEDS: MEROPENEM 500 MG in NACL 0.9% 50 ML IV SCH ×2 (08:46→20:52)
[2017-09-23] MEDS: Z-GUARD PASTE TP SCH ×2 (09:00→20:50)
[2017-09-23 09:18] LABS: WHITE BLOOD COUNT (AUTO) 9.5 K/uL (4.8-10.8)
[2017-09-23] MEDS: DEXTROSE 5% 1,000 ML IV SCH (09:35)
[2017-09-23 12:00] VITALS: BP 129/71
[2017-09-23] MEDS: INSULIN LISPRO SLIDING SCALE 100 UNITS/ML VIAL SUBQ PRN ×3 (12:26→21:09)
[2017-09-23] MEDS ORDERED: MAG SULF 2000 MG/WATER PREMIX 100 ML IV ONE (12:35)
[2017-09-23] MEDS ORDERED: POTASSIUM CHLORIDE 10 MEQ TABER PO SCH (12:35)
[2017-09-23 16:00] VITALS: BP 133/76
--- NOTE | 2017-09-23 19:16 | NUR ---
ENDORSED PATIENT TO DIRECTOR OF EARLY CHILDHOOD EDUCATION RN FOR CONTINUITY OF CARE. PATIENT IN STABLE CONDITION.
--- NOTE | 2017-09-23 19:17 | NUR ---
RECEIVED REPORT FROM AM NURSE. PT IS AWAKE, RESTING COMFORTABLY IN BED. NO SIGNS OF ACUTE DISTRESS NOTED. RESPIRATIONS EVEN AND UNLABORED. ON ROOM AIR. IV ACCESS INTACT, PATENT AND ASYMPTOMATIC. BED IN LOW POSITION, BILATERAL HALF SIDE RAILS UP, CALL LIGHT WITHIN REACH, WILL CONTINUE TO MONITOR.
[2017-09-23 20:00] VITALS: BP 132/74
[2017-09-23] MEDS: MIRTAZAPINE 15 MG TAB PO SCH (20:49)
[2017-09-23] MEDS: QUEtiapine FUMARATE 25 MG TAB PO SCH (20:49)
--- NOTE | 2017-09-23 21:04 | NUR ---
PER SELVIN DONALDSON TO GIVE HEPARIN INJECTION 5,000 UNITS. PLATELET COUNT IS 212.
[2017-09-24] VITALS: BP 146/101
--- NOTE | 2017-09-24 01:53 | NUR ---
PT IS SLEEPING, AROUSABLE TO VOICE. NO SIGNS OF ACUTE DISTRESS NOTED. RESPIRATIONS EVEN AND UNLABORED. BED IN LOW POSITION, BILATERAL HALF SIDE RAILS UP, CALL LIGHT WITHIN REACH, WILL CONTINUE TO MONITOR.
[2017-09-24 04:00] VITALS: BP 105/61
[2017-09-24] MEDS: BLOOD GLUCOSE MONITORING 1 DEV DEV FS SCH ×4 (06:29→20:12)
[2017-09-24] MEDS: INSULIN LISPRO SLIDING SCALE 100 UNITS/ML VIAL SUBQ PRN ×3 (06:30→17:24)
[2017-09-24 07:06] LABS: BASOPHILS # (AUTO) 0.1 K/uL (0.00-0.22); BASOPHILS % (AUTO) 0.9 % (0.0-2.0); EOSINOPHILS # (AUTO) 0.2 K/uL (0-0.4); EOSINOPHILS % (AUTO) 2.2 % (0.0-4.0); HEMATOCRIT 31.3 % (36-48); HEMOGLOBIN 10.6 g/dL (12.0-16.0); LYMPHOCYTES # (AUTO) 0.5 K/uL (2.5-16.5); LYMPHOCYTES % (AUTO) 5.3 % (20.5-51.1); MEAN CORPUSCULAR HEMOGLOBIN 30 pg (27-31); MEAN CORPUSCULAR HGB CONC 34 g/dL (33-37); MEAN CORPUSCULAR VOLUME 89 fL (80-94); MONOCYTES # (AUTO) 0.6 K/uL (0.8-1.0); MONOCYTES % (AUTO) 7.1 % (1.7-9.3); NEUTROPHILS # (AUTO) 7.5 K/uL (1.8-7.7); NEUTROPHILS % (AUTO) 84.5 % (42.2-75.2); PLATELET COUNT (AUTO) 159 K/uL (140-450); RED BLOOD CELL COUNT(AUTO) 3.51 MIL/uL (4.20-5.40); RED CELL DISTRIBUTION WIDTH 14.9 % (11.6-13.7)
--- NOTE | 2017-09-24 07:20 | NUR ---
ENDORSED PT TO AM NURSE FOR CONTINUITY OF CARE. PT IS IN STABLE CONDITION.
--- NOTE | 2017-09-24 07:22 | NUR ---
RECEIVED REPORT AT BEDSIDE FROM TONEY LAGUNA. PT RESTING IN BED. AAOX1. NO S/S OF ACUTE DISTRESS. FLACC-0. IV SITE PATENT AND INTACT. REYNOSO CATHETER PATENT. TELE BOX IN PLACE. CALL LIGHT WITHIN REACH. SAFETY MEASURES ENSURED. WILL CONTINUE TO MONITOR.
[2017-09-24 07:26] LABS: MAGNESIUM 2.4 mg/dL (1.8-2.4); PHOSPHORUS 1.7 mg/dL (2.5-4.9)
[2017-09-24 07:30] LABS: ANION GAP 9.4 (8-16); CARBON DIOXIDE 26.6 mmol/L (21-32); CHLORIDE 122 mmol/L (98-107); GLUCOSE 214 mg/dL (74-106); SODIUM SERUM 155 mmol/L (136-145)
[2017-09-24 07:33] VITALS: BP 152/76
[2017-09-24 07:36] LABS: UREA NITROGEN, BLOOD 63 mg/dL (7-18)
[2017-09-24 07:50] LABS: WHITE BLOOD COUNT (AUTO) 8.9 K/uL (4.8-10.8)
[2017-09-24] MEDS: DEXTROSE 5% 1,000 ML IV SCH (08:05)
[2017-09-24] MEDS: LACTOBACILLUS RHAMNOSUS GG 1 EACH CAP PO SCH (08:52)
[2017-09-24] MEDS: CALCIUM CARB/VIT-D 500 MG/200 IU 1 TAB PO SCH (08:52)
[2017-09-24] MEDS: DONEPEZIL 10 MG TAB PO SCH ×2 (08:52→21:08)
[2017-09-24] MEDS: TAMSULOSIN 0.4 MG CAP PO SCH (08:52)
[2017-09-24] MEDS: MEROPENEM 500 MG in NACL 0.9% 50 ML IV SCH ×2 (08:54→22:00)
[2017-09-24] MEDS: Z-GUARD PASTE TP SCH ×2 (08:58→21:00)
--- NOTE | 2017-09-24 08:59 | NUR ---
AM MEDS GIVEN WITH EDUCATION. PT UNABLE TO VERBALIZED UNDERSTANDING. COLACE HELD DUE TO PT BEING ON PUREE DIET. NO S/S OF ACUTE DISTRESS. WILL CONTINUE TO MONITOR.
[2017-09-24] MEDS: DOCUSATE SODIUM 100 MG GELCAP PO SCH ×2 (09:00→21:08)
--- NOTE | 2017-09-24 09:17 | NUR ---
FROILAN NOTE CONCURRENT REVIEW FAXED TO FAX# [phone] [facility] PH# [phone] EXT [phone]. PER TRACEY OF [facility] PH# [phone], THEY ARE STILL WORKING ON PLACEMENT, [facility] [place] CANNOT TAKE THE PATIENT BECAUSE OF NO ISOLATION BED AT THIS TIME. Addendum: 09/24/17 at 1019 by Trupti Paredes FAXED BLOOD CULTURE RESULT TO [facility] [phone] ATTN: TRACEY Carvajal PH# [phone]
--- NOTE | 2017-09-24 11:00 | NUR ---
WOUND CARE EVALUATION NOTE REASON FOR EVALUATION: SACRALCOCCYX REDNESS COMPLETE SKIN ASSESSMENT DONE ON THIS 72Y/O FEMALE PATIENT TO [facility], WITH INITIAL DIAGNOSIS OF INCREASING CONFUSION. PAST MEDICAL HISTORY INCLUDE CVA, ALZHEIMER,DM AND HTN. ALL ABOVE INFORMATION WAS OBTAINED FROM THE ADMISSION H&P. LABS ARE WBC 8.9, H/H 10.6/31.3, GLUCOSE 214, ALBUMIN 2.0. CURRENT MEDS INCLUDE MEROPENEM, INSULIN, CALCIUM/VIT D . SKIN WARM TO TOUCH WNL, TOENAILS ARE SHORT AND THICKENED, NO EDEMA, NO HAIR GROWTH, BLE ARE DRY, ABLE TO PALPATE BILATERAL PEDAL PULSES WITHIN NORMAL LIMIT.. INITIAL PLAN OF CARE AND PRESSURE PREVENTIVE MEASURES DISCUSSED WITH PRIMARY RN. INTEGUMENTARY: SACRAL COCCYX INCONTINENT ASSOCIATE DERMATITIS 1.5X1.5X0.1 CM PARTIAL THICKNESS LOSS OF DERMIS, WOUND BED IS PINK AND DRY, NO ODOR BILATERAL HEELS BLANCHABLE REDNESS RECOMMENDATIONS: -CLEANSE SACRALCOCCYX IAD WITH NS, PAT DRY, APPLY THIN LAYER OF APPLY Z GUARD AND COVER WITH OPTIFORM QD AND PRN WITH SOILING. -TURN AND REPOSITION PATIENT Q 2H -ASSESS AND MONITOR SKIN CONDITION DURING POSITION CHANGE, PLEASE PAY ATTENTION TO SACRALCOCCYX, ELBOWS AND HEELS -OFFLOAD BILATERAL HEELS BY PLACING PILLOWS UNDER CALVES AT ALL TIMES, UNLESS OTHERWISE CONTRAINDICATED -PRESSURE REDISTRIBUTION SURFACE THERAPY -KEEP SKIN CLEAN AND DRY AT ALL TIMES -HEEL RAISER TO LEFT HEEL AT ALL TIME RECOMMENDATIONS DISCUSSED WITH PRIMARY RN WILL FOLLOW UP Q 7-10 DAYS AND PRN, PLEASE CONTACT WOUND CARE NURSE FOR ANY CONCERNS, QUESTIONS AND CHANGES IN SKIN CONDITION.
--- NOTE | 2017-09-24 11:03 | NUR ---
PT REPOSITIONED WITH HYDRO EXCAVATION OPERATOR. Z-GUARD APPLIED. CALL LIGHT WITHIN REACH. SAFETY MEASURES ENSURED. WILL CONTINUE TO MONITOR.
[2017-09-24 11:45] VITALS: BP 138/75
--- NOTE | 2017-09-24 13:40 | NUR ---
PT RESTING IN BED. NO S/S OF ACUTE DISTRESS. FLACC-0. WILL CONTINUE TO MONITOR.
[2017-09-24] MEDS ORDERED: NACL 0.9% 1,000 ML IV SCH (15:55)
[2017-09-24 16:00] VITALS: BP 148/78
[2017-09-24] MEDS ORDERED: POTASSIUM CHLORIDE 20% 40 MEQ/15 ML UDC PO SCH (16:00)
[2017-09-24] MEDS: SODIUM PHOS / POTASSIUM PHOS 1 PKT PDR PO SCH (17:21)
--- NOTE | 2017-09-24 19:07 | NUR ---
ENDORSED PLAN OF CARE. TO NIGHT RN.
--- NOTE | 2017-09-24 19:08 | NUR ---
PATIENT REPORT RECEIVED AT BEDSIDE FROM MORNING NURSE. PATIENT IS AWAKE, ALERT AND ORIENTED. NO SIGNS AND SYMPTOMS OF DISTRESS NOTED. BREATHING EVEN AND UNLABORED. IV SITE NOTED ON RIGHT HAND, IVF INFUSING WELL. REYNOSO CATHETER IN PLACE AND DRAINING YELLOW URINE. BED IN LOWEST POSITION, SIDE RAILS UP AND CALL LIGHT WITHIN REACH. WILL CONTINUE TO MONITOR.
[2017-09-24 20:00] VITALS: BP 135/73
--- NOTE | 2017-09-24 21:00 | NUR ---
PATIENT HAD A BOWEL MOVEMENT. STOOL WAS LIGHT BROWN, FORMED, AND MINIMAL IN AMOUNT. PERICARE DONE. PATIENT REPOSITIONED FOR COMFORT. PATIENT TOLERATED WELL. WILL CONTINUE TO MONITOR
[2017-09-24] MEDS: MIRTAZAPINE 15 MG TAB PO SCH (21:08)
[2017-09-24] MEDS: QUEtiapine FUMARATE 25 MG TAB PO SCH (21:09)
--- NOTE | 2017-09-24 22:00 | NUR ---
PATIENT REMOVED IV LINE FROM RIGHT HAND. IV CANNULA INTACT. NEW IV SITE INSERTED ALSO ON RIGHT HAND. PATIENT TOLERATED WELL
[2017-09-25] VITALS: BP 124/69
--- NOTE | 2017-09-25 | NUR ---
PATIENT REPOSITIONED FOR COMFORT. PATIENT TOLERATED WELL, NO SIGNS AND SYMPTOMS OF DISTRESS NOTED.
--- NOTE | 2017-09-25 02:30 | NUR ---
PATIENT REPOSITIONED FOR COMFORT. PATIENT TOLERATED WELL, NO SIGNS AND SYMPTOMS OF DISTRESS NOTED.
[2017-09-25 04:00] VITALS: BP 97/66
--- NOTE | 2017-09-25 05:00 | NUR ---
PATIENT REPOSITIONED FOR COMFORT. PATIENT TOLERATED WELL, NO SIGNS AND SYMPTOMS OF DISTRESS NOTED.
[2017-09-25] MEDS: INSULIN LISPRO SLIDING SCALE 100 UNITS/ML VIAL SUBQ PRN ×4 (06:21→21:33)
[2017-09-25 06:33] LABS: BASOPHILS # (AUTO) 0.1 K/uL (0.00-0.22); BASOPHILS % (AUTO) 1.6 % (0.0-2.0); EOSINOPHILS # (AUTO) 0.3 K/uL (0-0.4); HEMATOCRIT 31.1 % (36-48); HEMOGLOBIN 10.1 g/dL (12.0-16.0); LYMPHOCYTES # (AUTO) 0.9 K/uL (2.5-16.5); LYMPHOCYTES % (AUTO) 9.2 % (20.5-51.1); MEAN CORPUSCULAR HEMOGLOBIN 29 pg (27-31); MEAN CORPUSCULAR HGB CONC 33 g/dL (33-37); MEAN CORPUSCULAR VOLUME 89 fL (80-94); MONOCYTES # (AUTO) 0.6 K/uL (0.8-1.0); MONOCYTES % (AUTO) 6.9 % (1.7-9.3); NEUTROPHILS # (AUTO) 7.3 K/uL (1.8-7.7); NEUTROPHILS % (AUTO) 79.3 % (42.2-75.2); PLATELET COUNT (AUTO) 188 K/uL (140-450); RED BLOOD CELL COUNT(AUTO) 3.49 MIL/uL (4.20-5.40); RED CELL DISTRIBUTION WIDTH 14.7 % (11.6-13.7); WHITE BLOOD COUNT (AUTO) 9.2 K/uL (4.8-10.8)
[2017-09-25] MEDS: BLOOD GLUCOSE MONITORING 1 DEV DEV FS SCH ×4 (06:34→21:28)
[2017-09-25 06:42] LABS: MAGNESIUM 1.7 mg/dL (1.8-2.4); PHOSPHORUS 2.5 mg/dL (2.5-4.9)
[2017-09-25 06:49] LABS: ANION GAP 9.6 (8-16); CARBON DIOXIDE 28.1 mmol/L (21-32); CHLORIDE 124 mmol/L (98-107); CREATININE 2.1 mg/dL (0.6-1.3); GLUCOSE 182 mg/dL (74-106); POTASSIUM 3.7 mmol/L (3.5-5.1); SODIUM SERUM 158 mmol/L (136-145); UREA NITROGEN, BLOOD 54 mg/dL (7-18)
--- NOTE | 2017-09-25 07:26 | NUR ---
PATIENT REPORT GIVEN TO MORNING NURSE AT BEDSIDE. PATIENT IS IN STABLE CONDITION.
--- NOTE | 2017-09-25 07:28 | NUR ---
RECEIVED REPORT FROM NIGHT NURSE AT PT BEDSIDE. PATIENT SEEN REMOVING CLOTHES AND LINENS. PATIENT ALERT TO SELF. CONFUSED. FOLLOWS SIMPLE COMMANDS. IV SITE PATENT AND INTACT. BED ALARMS CHECKED. BED IN LOWEST POSITION. BEDBOUND. SCDS IN PLACE. DENIES DISCOMFORT. NO S/S OF RESPIRATORY DISTRESS ON ROOM AIR. WILL CONTINUE TO MONITOR.
[2017-09-25 08:00] VITALS: BP 105/74
[2017-09-25] MEDS: CALCIUM CARB/VIT-D 500 MG/200 IU 1 TAB PO SCH (08:15)
[2017-09-25] MEDS: DOCUSATE SODIUM 100 MG GELCAP PO SCH ×2 (08:15→21:28)
[2017-09-25] MEDS: LACTOBACILLUS RHAMNOSUS GG 1 EACH CAP PO SCH (08:15)
[2017-09-25] MEDS: TAMSULOSIN 0.4 MG CAP PO SCH (08:15)
[2017-09-25] MEDS: DONEPEZIL 10 MG TAB PO SCH ×2 (08:15→21:28)
[2017-09-25] MEDS: SODIUM PHOS / POTASSIUM PHOS 1 PKT PDR PO SCH ×3 (08:15→17:32)
[2017-09-25] MEDS: MEROPENEM 500 MG in NACL 0.9% 50 ML IV SCH ×2 (08:16→21:28)
[2017-09-25] MEDS: Z-GUARD PASTE TP SCH ×3 (08:25→21:29)
--- NOTE | 2017-09-25 08:55 | NUR ---
CM NOTE CONCURRENT REVIEW FAXED TO FAX# [phone] [facility] PH# [phone] EXT [id number]. PER [facility] PH# [phone], THEY ARE STILL WORKING ON PLACEMENT.
[2017-09-25] MEDS ORDERED: MAG SULF 2000 MG/WATER PREMIX 50 ML IV SCH (09:30)
--- NOTE | 2017-09-25 10:00 | NUR ---
PATIENT ASSISTED IN CHANGING OF POSITIONS. OFFLOADED PRESSURE AREAS. IV SITE PATENT AND INTACT. PATIENT HAD LARGE BM, SKIN CLEANED AND DRY. NO S/S OF ACUTE DISTRESS NOTED.
--- NOTE | 2017-09-25 11:43 | NUR ---
FROILAN NOTE CALLED [facility] # [phone] AND LEFT A MESSAGE, NO CALL BACK.
[2017-09-25 12:00] VITALS: BP 111/83
--- NOTE | 2017-09-25 13:20 | NUR ---
PATIENT SLEEPING, EASILY STARTLED. NO S/S OF ACUTE DISTRESS NOTED. IV SITE PATENT AND INTACT.
[2017-09-25] MEDS: NACL 0.45% 1,000 ML IV SCH (14:07)
--- NOTE | 2017-09-25 15:04 | NUR ---
FROILAN NOTE FAXED ORDER FOR SNF TO [facility] ATTN: FROILAN ABREU FAX# [phone] PH# [phone] EXT [phone]. RECEIVED CALL FROM DENIZ OF [facility] PH# [phone] EXT [phone] AND SHE SAID THEY ARE CONTRACTED WITH [facility]. FAXED INQUIRY TO [facility] FAX# [phone]. PER JEIMY OF [facility] PH# [phone], SHE WILL HAVE TO CHECK WITH HER NURSING CENTER TUTOR IF THEY CAN ACCEPT PATIENT BECAUSE THEY ARE CONCERNED THAT PATIENT IS ON [place].
[2017-09-25 16:00] VITALS: BP 128/80
--- NOTE | 2017-09-25 16:44 | NUR ---
PCP MADE AWARE OF HEART RHYTHM CHANGE TO AFLUTTER RATE 131. NO NEW ORDERS. MD AWARE OF PATIENT'S PACEMAKER AND PREVIOUS HR STRIPS. PATIENT RESTING IN BED. NO S/S OF ACUTE DISTRESS NOTED.
--- NOTE | 2017-09-25 18:20 | NUR ---
PATIENT TOLERATED ENTIRE DINNER. NO S/S OF ACUTE DISTRESS NOTED. DENIES DISCOMFORT.
--- NOTE | 2017-09-25 19:16 | NUR ---
SBAR REPORT ENDORSED TO TONEY KIRK AT PT BEDSIDE. NO S/S OF ACUTE DISTRESS NOTED.
--- NOTE | 2017-09-25 19:17 | NUR ---
RECEIVED REPORT FROM AM NURSE. PT RESTING IN BED, AOX1, CONFUSED, BEDREST, GENERALIZED WEAKNESS, ABLE TO FOLLOW SIMPLE COMMANDS. COMMERCIAL LEASING AGENT IN PLACE. REYNOSO CATH IN PLACE, DRAINING CLEAR YELLOW URINE. IV ACCESS ASYMPTOMATIC, PATENT AND INTACT. IVF INFUSING WELL. DISCUSSED AND REVIEWED PLAN OF CARE WITH PT. WILL CONTINUED WITH CONSTANT REINFORCEMENT. ASSISTED PT TO TURN AND REPOSITION, OFFLOADED PRESSURE AREAS. PT TOLERATED WELL. ALL NEEDS MET. BED ALARM AND SAFETY MEASURES ENSURED. CALL LIGHT WITHIN REACH. WILL CONTINUE TO MONITOR.
[2017-09-25 20:00] VITALS: BP 106/75
[2017-09-25] MEDS: MIRTAZAPINE 15 MG TAB PO SCH (21:28)
[2017-09-25] MEDS: QUEtiapine FUMARATE 25 MG TAB PO SCH (21:29)
--- NOTE | 2017-09-25 21:40 | NUR ---
BLOOD GLUCOSE 171, INSULIN COVERAGE ADMINISTERED WITH EVENIGN SNACK. ADMINISTERED DUE MEDS CRUSHED, MIXED WITH APPLE SAUCE, PT ABLE TO SWALLOW WELL. SACRAL OPTIFOAM DRESSING UNABLE TO STICK WELL. PT CLEANED, ZGUARD APPLIED, CHANGED OPTIFOAM DRESSING. ASSISTED PT TO TURN AND REPOSITION, OFFLOADED PRESSURE AREAS. PT TOLERATED WELL. ALL NEEDS MET. IVPB INFUSING WELL. BED ALARM AND SAFETY MEASURES ENSURED. CALL LIGHT WITHIN REACH. WILL CONTINUE TO MONITOR.
--- NOTE | 2017-09-25 23:45 | NUR ---
PT SLEEPING COMFORTABLY, AROUSABLE TO NAME, NO S/S OF ACUTE DISTRESS. ASSISTED PT TO TURN AND REPOSITION, OFFLOADED PRESSURE AREAS. PT TOLERATED WELL. ALL NEEDS MET. IVF INFUSING WELL. BED ALARM AND SAFETY MEASURES ENSURED. CALL LIGHT WITHIN REACH. WILL CONTINUE TO MONITOR.
[2017-09-26] VITALS: BP 125/66
[2017-09-26] MEDS: NACL 0.45% 1,000 ML IV SCH ×2 (02:54→06:16)
--- NOTE | 2017-09-26 03:50 | NUR ---
PT SLEEPING COMFORTABLY, AROUSABLE TO NAME, NO S/S OF ACUTE DISTRESS. PT HAD SMEAR OF BM, PT CLEANED, SACRAL DRESSING CLEAN DRY AND INTACT. ASSISTED PT TO TURN AND REPOSITION, OFFLOADED PRESSURE AREAS. PT TOLERATED WELL. ALL NEEDS MET. IVF INFUSING WELL. BED ALARM AND SAFETY MEASURES ENSURED. CALL LIGHT WITHIN REACH. WILL CONTINUE TO MONITOR.
[2017-09-26 04:00] VITALS: BP 124/67
[2017-09-26 06:11] LABS: BASOPHILS # (AUTO) 0.2 K/uL (0.00-0.22); BASOPHILS % (AUTO) 1.8 % (0.0-2.0); EOSINOPHILS # (AUTO) 0.3 K/uL (0-0.4); EOSINOPHILS % (AUTO) 3.6 % (0.0-4.0); HEMATOCRIT 30.6 % (36-48); HEMOGLOBIN 9.6 g/dL (12.0-16.0); LYMPHOCYTES # (AUTO) 0.9 K/uL (2.5-16.5); LYMPHOCYTES % (AUTO) 9.6 % (20.5-51.1); MEAN CORPUSCULAR HEMOGLOBIN 28 pg (27-31); MEAN CORPUSCULAR HGB CONC 31 g/dL (33-37); MEAN CORPUSCULAR VOLUME 90 fL (80-94); MONOCYTES # (AUTO) 0.6 K/uL (0.8-1.0); MONOCYTES % (AUTO) 5.8 % (1.7-9.3); NEUTROPHILS # (AUTO) 7.6 K/uL (1.8-7.7); NEUTROPHILS % (AUTO) 79.2 % (42.2-75.2); PLATELET COUNT (AUTO) 225 K/uL (140-450); RED BLOOD CELL COUNT(AUTO) 3.39 MIL/uL (4.20-5.40); RED CELL DISTRIBUTION WIDTH 14.9 % (11.6-13.7); WHITE BLOOD COUNT (AUTO) 9.6 K/uL (4.8-10.8)
[2017-09-26] MEDS: BLOOD GLUCOSE MONITORING 1 DEV DEV FS SCH ×2 (06:16→12:08)
--- NOTE | 2017-09-26 06:16 | NUR ---
BLOOD GLUCOSE 140, NO INSULIN COVERAGE NEEDED. PT REPOSITIONED, OFFLOADED PRESSURE AREAS. PT TOLERATED WELL. ALL NEEDS MET. IVF INFUSING WELL. SAFETY MEASURES ENSURED. CALL LIGHT WITHIN REACH. WILL CONTINUE TO MONITOR.
[2017-09-26 06:19] LABS: CARBON DIOXIDE 27.1 mmol/L (21-32); CHLORIDE 122 mmol/L (98-107); CREATININE 1.6 mg/dL (0.6-1.3); GLUCOSE 156 mg/dL (74-106); POTASSIUM 4.1 mmol/L (3.5-5.1); SODIUM SERUM 157 mmol/L (136-145); UREA NITROGEN, BLOOD 43 mg/dL (7-18)
[2017-09-26 06:25] LABS: MAGNESIUM 1.9 mg/dL (1.8-2.4); PHOSPHORUS 3.2 mg/dL (2.5-4.9)
--- NOTE | 2017-09-26 07:15 | NUR ---
ENDORSED PLAN OF CARE TO AM NURSE. CONDITION STABLE.
--- NOTE | 2017-09-26 07:16 | NUR ---
RECEIVED REPORT FROM QUALITY ASSURANCE COACH NURSE. PATIENT LYING IN BED SLEEPING, AROUSABLE BY VOICE. IN STABLE CONDITION. RESPIRATIONS EVEN, UNLABORED, ON ROOM AIR. AAOX1, CALM, COOPERATIVE, CONFUSED, FORGETFUL, SKIN COLOR APPROPRIATE TO ETHNICITY, WARM TO TOUCH. HAS SKIN REDNESS ON COCCYX AREA COVERED WITH OPTIFOAM DRESSING THAT IS DRY AND INTACT. REYNOSO CATHETER IN PLACE, PATENT AND INTACT, DRAINING CLOUDY YELLOW URINE. ABDOMEN SOFT, NON-DISTENDED. LUNGS CTA ON ALL LOBES. REVIEWED PLAN OF CARE WITH PATIENT. REINFORCEMENT NEEDED. SAFETY MEASURES IN PLACE, CALL LIGHT WITHIN REACH, FALL PREVENTIONS IN PLACE. WILL CONTINUE TO MONITOR.
[2017-09-26 08:00] VITALS: BP 134/55
--- NOTE | 2017-09-26 08:17 | NUR ---
FROILAN NOTE CONCURRENT REVIEW FAXED TO FAX# [phone] AND LEFT A MESSAGE FOR FROILAN ABREU PH# [phone] EXT [phone]. SPOKE WITH KEYA AND SHE SAID TO CALL AND CHECK WITH JEIMY. LEFT MESSAGE TO [facility] PH# [phone], WAITING FOR CALL BACK.
--- NOTE | 2017-09-26 08:42 | NUR ---
CM NOTE RECEIVED CALL FROM JEIMY OF [place] AND SHE SAID THEY WOULD HAVE AN AVAILABLE ISOLATION BED TODAY BUT SHE WOULD NEED THE AUTHORIZATION BEFORE SHE CAN WORK ON IT. RECEIVED A CALL FROM DENIZ OF PH# [phone] EXT [phone] AND SHE SAID SHE WILL WORK ON THE AUTHORIZATION. WILL FOLLOW UP.
[2017-09-26] MEDS: CALCIUM CARB/VIT-D 500 MG/200 IU 1 TAB PO SCH (09:08)
[2017-09-26] MEDS: DONEPEZIL 10 MG TAB PO SCH (09:08)
[2017-09-26] MEDS: LACTOBACILLUS RHAMNOSUS GG 1 EACH CAP PO SCH (09:08)
[2017-09-26] MEDS: TAMSULOSIN 0.4 MG CAP PO SCH (09:08)
[2017-09-26] MEDS: DOCUSATE SODIUM 100 MG GELCAP PO SCH (09:08)
[2017-09-26] MEDS: SODIUM PHOS / POTASSIUM PHOS 1 PKT PDR PO SCH ×2 (09:08→12:00)
[2017-09-26] MEDS: Z-GUARD PASTE TP SCH ×2 (09:09→12:14)
[2017-09-26] MEDS: MEROPENEM 500 MG in NACL 0.9% 50 ML IV SCH (09:10)
--- NOTE | 2017-09-26 09:32 | NUR ---
PATIENT LYING IN BED COMFORTABLY. NO DISTRESS NOTED. RESPIRATIONS EVEN, UNLABORED, ON ROOM AIR. FLACC 0. CONDITION UNCHANGED. SCHEDULED MEDICATIONS DUE GIVEN. SAFETY MEASURES IN PLACE, CALL LIGHT WITHIN REACH. WILL CONTINUE TO MONITOR.
--- NOTE | 2017-09-26 10:45 | NUR ---
CM NOTE LEFT MESSAGE FOR BRADY OF PH# [phone] EXT [phone] AND DENIZ OF PH# [phone] EXT [phone] TO FOLLOW UP ON THE AUTHORIZATIONS, NO CALL BACK.
--- NOTE | 2017-09-26 11:45 | NUR ---
ASSISTED DENSITY CONTROL PUNCHER IN CLEANING AND REPOSITIONING PATIENT. NO DISTRESS NOTED, FLACC 0. CONDITION UNCHANGED. SAFETY MEASURES IN PLACE, CALL LIGHT WITHIN REACH. WILL CONTINUE TO MONITOR.
[2017-09-26 12:00] VITALS: BP 150/76
[2017-09-26] MEDS: INSULIN LISPRO SLIDING SCALE 100 UNITS/ML VIAL SUBQ PRN (12:07)
--- NOTE | 2017-09-26 12:15 | NUR ---
PATIENT SITTING IN BED WITH LUNCH TRAY IN FRONT. NO DISTRESS NOTED. DENIES ANY PAIN, FLACC 0. RESPIRATIONS EVEN, UNLABORED, ON ROOM AIR. AAOX1, CONDITION UNCHANGED. SCHEDULED MEDICATIONS DUE GIVEN. SAFETY MEASURES IN PLACE, CALL LIGHT WITHIN REACH. WILL CONTINUE TO MONITOR.
--- NOTE | 2017-09-26 12:34 | NUR ---
CM NOTE PER DENIZ OF PH# [phone] EXT [phone], FOR [facility] AUTH# [id number]*SNF[facility] AUTH# [id number]*ANC PER JEIMY OF [facility] PH# [phone], THEY ARE ACCEPTING PATIENT AND CAN GO TO [address] [place], NUMBER TO CALL FOR REPORT [phone]. PER FELICIANO OF [facility] PH# [phone] THEY CAN SURGEON'S ASSISTANT PATIENT FROM [facility], 1600 TIME TODAY, GOING TO [facility]. CHARGE NURSE ANA M AND LUIS EDUARDO ZIEGLER AWARE.
--- NOTE | 2017-09-26 13:14 | NUR ---
SPOKE WITH PATIENT'S SON, GHAZALA WHEELER, TO NOTIFY HIM OF THE PLANS TO TRANSFER PATIENT TO [facility] IN [place] LATER TODAY BY [facility] WITH A [employer] SUPERINTENDENT TIME OF 1600. ANSWERED ALL QUESTIONS FROM GHAZALA. FAMILY MEMBER VERBALIZED COMPLETE UNDERSTANDING. SAFETY MEASURES IN PLACE, CALL LIGHT WITHIN REACH. WILL CONTINUE TO MONITOR.
[2017-09-26] MEDS ORDERED: TAMS0.4C96 PO (14:17)
[2017-09-26] MEDS ORDERED: HUMSLIDE SUBQ (14:20)
[2017-09-26] MEDS ORDERED: MERO500P9 IV (14:22)
--- NOTE | 2017-09-26 14:49 | NUR ---
09/26/17 RD FOLLOW UP COMPLETED PLEASE REFER TO NUTRITION PROGRESS NOTE UNDER CARE ACTIVITY FOR ESTIMATED NUTRITION NEEDS. 1. CONTINUE PUREE DIET WITH HONEY THICKENED LIQUIDS TOLERATED PER MD 2. ENCOURAGE INCREASED PO INTAKES -PATIENT WITH 50% PO INTAKE RIGHT NOW. 3. IF/WHEN PT PO INTAKES IMPROVE >75%, CONSIDER ADDING CCHO 60 GM TO CURRENT DIET ORDER 4. RD TO FOLLOW-UP 2-3 DAYS, HIGH RISK RAMILA TATUM, RD
--- NOTE | 2017-09-26 14:58 | NUR ---
CALLED LD [facility] AT [phone] AND GAVE REPORT TO TONEY DELEON. ANSWERED ALL QUESTIONS ADRIENNE HAD REGARDING PATIENT. LD MADE AWARE OF PATIENT'S STATUS AND CONTACT ISOLATION. [facility] INSTRUCTOR PILOT TIME IS SCHEDULED AT 1600. WILL CONTINUE TO MONITOR.
--- NOTE | 2017-09-26 15:00 | NUR ---
PATIENT LYING IN BED. NO DISTRESS NOTED. DENIES ANY PAIN. FLACC 0. CONDITION UNCHANGED. ASSISTED CRUCIBLE FURNACE TENDER IN CHANGING PATIENT AND GETTING READY FOR TRANSFER TO [facility]. SAFETY MEASURES IN PLACE, CALL LIGHT WITHIN REACH. WILL CONTINUE TO MONITOR.
--- NOTE | 2017-09-26 16:00 | NUR ---
[facility] ARRIVED ON MST UNIT TO TAKE PATIENT TO [facility]. ID BANDS REMOVED FROM PATIENT AND IVF HYDRATION DISCONNECTED. IV ON RIGHT HAND AND REYNOSO CATHETER TO REMAIN IN PLACE PER MD ORDERS. ALL BELONGINGS WITH PATIENT/TRANSPORTERS. PROVIDED DISCHARGE EDUCATION/TEACHING, REPORT TO TRANSPORTERS. ANSWERED ALL TRANSPORTERS QUESTIONS. PATIENT DISCHARGED AT THIS TIME TO [facility] VIA [facility] IN STABLE CONDITION. ALL BELONGINGS WITH PATIENT. TONEY PEARCE FROM [place] EXPECTING PATIENT.
== END 2017-09-26 16:15 | DRG 871 ==
LOC: MED 12:28 → MTU 14:41 → MIC 15:09 → MTU 09-20 17:00
PROVIDERS: ADMIT Family Medicine; ATTEND Family Medicine
DX: A41.51 Sepsis due to Escherichia coli [E. coli] (principal); N17.0 Acute kidney failure with tubular necrosis; J96.00 Acute respiratory failure, unspecified whether with hypoxia or hypercapnia; I21.4 Non-ST elevation (NSTEMI) myocardial infarction; E43 Unspecified severe protein-calorie malnutrition; G93.41 Metabolic encephalopathy; I50.43 Acute on chronic combined systolic (congestive) and diastolic (congestive) heart failure; K92.2 Gastrointestinal hemorrhage, unspecified; D68.59 Other primary thrombophilia; F02.81 Dementia in other diseases classified elsewhere, unspecified severity, with behavioral disturbance; D62 Acute posthemorrhagic anemia; N39.0 Urinary tract infection, site not specified; I42.0 Dilated cardiomyopathy; E87.0 Hyperosmolality and hypernatremia; I24.9 Acute ischemic heart disease, unspecified; N13.2 Hydronephrosis with renal and ureteral calculous obstruction; I13.0 Hypertensive heart and chronic kidney disease with heart failure and stage 1 through stage 4 chronic kidney disease, or unspecified chronic kidney disease; Z66 Do not resuscitate; R65.20 Severe sepsis without septic shock; Z16.12 Extended spectrum beta lactamase (ESBL) resistance; E11.21 Type 2 diabetes mellitus with diabetic nephropathy; E86.1 Hypovolemia; E11.22 Type 2 diabetes mellitus with diabetic chronic kidney disease; N18.9 Chronic kidney disease, unspecified; I25.10 Atherosclerotic heart disease of native coronary artery without angina pectoris; E11.65 Type 2 diabetes mellitus with hyperglycemia; D63.8 Anemia in other chronic diseases classified elsewhere; E11.51 Type 2 diabetes mellitus with diabetic peripheral angiopathy without gangrene; F32.9 Major depressive disorder, single episode, unspecified; E83.42 Hypomagnesemia; L30.9 Dermatitis, unspecified; G30.9 Alzheimer's disease, unspecified; E78.5 Hyperlipidemia, unspecified; D69.6 Thrombocytopenia, unspecified; I48.91 Unspecified atrial fibrillation; Z68.25 Body mass index [BMI] 25.0-25.9, adult; Z95.810 Presence of automatic (implantable) cardiac defibrillator
CPT/HCPCS: 36415; 36600; 51702; 70450; 71010; 80048; 80053; 81001; 82140; 82150; 82272; 82803; 82948; 83036; 83605; 83690; 83735; 83880; 84100; 84439; 84443; 84484; 85025; 85610; 85730; 86886; 86900; 86901; 87040; 87081; 87086; 87186; 92526; 92610; 93005; 96361; 96365; 97799; 99291; J0696; J1644; J1815; J2185; J2543; J3475; J3490; J7030; J7042; J7060; Q0092